=== PATIENT | female | born 1950 | race American Indian/Alaskan Native ===

== ENCOUNTER 2016-04-28 14:10 | Inpatient (IN) | payer MEDICARE ==
[2016-04-28] MEDS ORDERED: CLEOCIN 600 MG/50 mL 600 MG/50 ML BAG IV ONE (16:28)
[2016-04-28] MEDS ORDERED: VANCOMYCIN VIAL IV ONE (16:28)
[2016-04-28] MEDS ORDERED: SUBLIMAZE IV ONE (16:28)
--- NOTE | 2016-04-28 16:31 | Emergency Department Report ---
ED Lower Extremity HPI - General Chief Complaint: Fall Stated Complaint: FALL/LEG PAIN Time Seen by Provider: 04/28/16 16:06 Source: patient, EMS (ems notes not available at time of chart dictation), RN notes reviewed, old records reviewed Mode of arrival: Stretcher Limitations: Physical Limitation - History of Present Illness Initial Comments: This is a 65-year-old female. She is previously unknown to me. Her primary care doctor is Dr. france Past medical history includes severe arthritis, left hip revision, gastric bypass, liposuction of both sides, lymphedema, occasional superinfected cellulitis. The patient has been unable to walk since last February. She reports chronic arthritis in her bilateral hips. The patient reports that she stood up a few days ago, felt her legs give way, and then slid down. She did not hit her head. She did not hit her neck. While in the ER, she was found to have left lower extremity redness and erythema. It was also noted to be weeping. Patient has been seen in the past by vascular surgery for left lower extremity cellulitis. It was recommended and January 2015 that the patient follow-up in the vascular surgery office for "possible venous reflux disease and referral to manual lymphatic drainage clinic." Patient has not followed up for these. Patient reports that she has essentially been wheelchair bound since February 2015. MD Complaint: other (left lower extremity redness, swelling) -: unknown Type of Injury: unknown Place: home Severity: moderate Improves With: nothing, rest Worsens With: movement, palpation Associated Symptoms: swelling, unable to bear weight - Related Data Home Medications Medication Instructions Recorded Confirmed Last Taken Baclofen 10 mg PO BID 01/21/15 01/21/15 Unknown Esomeprazole Magnesium [NexIUM] 40 mg PO DAILY 01/21/15 01/21/15 Unknown HYDROcodone/ACETAMINOPHEN 1 tab PO Q4HR PRN 01/21/15 01/21/15 Unknown [HYDROcodone-Acetaminophn 10-325] Iron 18 mg PO QDAY 01/21/15 01/21/15 Unknown Magnesium 250 mg PO DAILY 01/21/15 01/21/15 Unknown Sennosides/Docusate Sodium 1 each PO DAILY 01/21/15 01/21/15 Unknown [Kati-Colace Tablet] Zolpidem [Ambien] 10 mg PO QHS 01/21/15 01/21/15 Unknown Previous Rx's Medication Instructions Recorded Last Taken Type Cephalexin [Keflex] 500 mg PO Q8HR #30 cap 01/28/15 Unknown Rx HYDROcodone/APAP 10-325 [Ken[place] 1 each PO Q4H PRN #120 tablet 01/28/15 Unknown Rx 10-325 mg TAB] Zolpidem [Ambien] 10 mg PO QHS PRN #30 tablet 01/28/15 Unknown Rx Allergies Allergy/AdvReac Type Severity Reaction Status Date / Time peanut Allergy Severe BREATHING Verified 04/28/16 16:42 STOPS,ITCHING,SWELLING ampicillin Allergy Mild Rash Verified 04/28/16 16:42 Penicillins Allergy Unknown Verified 04/28/16 15:52 ED Review of Systems ROS: Stated complaint: FALL/LEG PAIN Other details as noted in HPI Constitutional: malaise. denies: fever Eyes: denies: vision change ENT: denies: epistaxis Respiratory: denies: cough Cardiovascular: denies: chest pain Gastrointestinal: denies: abdominal pain Genitourinary: denies: urgency, dysuria Musculoskeletal: joint swelling, arthralgia, myalgia Skin: as per HPI, lesions Neurological: denies: headache ED Past Medical Hx - Past Medical History Hx Hypertension: Yes Additional medical history: Lower extremity edema - Surgical History Hx Cholecystectomy: Yes Additional Surgical History: LEFT HIP REVISION. Gastric bypass. Lipase section to both thighs in the remote past. - Social History Smoking Status: Former Smoker Substance Use Type: None - Medications Home Medications: Home Medications Medication Instructions Recorded Confirmed Last Taken Type Baclofen 10 mg PO BID 01/21/15 01/21/15 Unknown History Esomeprazole Magnesium [NexIUM] 40 mg PO DAILY 01/21/15 01/21/15 Unknown History HYDROcodone/ACETAMINOPHEN 1 tab PO Q4HR PRN 01/21/15 01/21/15 Unknown History [HYDROcodone-Acetaminophn 10-325] Iron 18 mg PO QDAY 01/21/15 01/21/15 Unknown History Magnesium 250 mg PO DAILY 01/21/15 01/21/15 Unknown History Sennosides/Docusate Sodium 1 each PO DAILY 01/21/15 01/21/15 Unknown History [Kati-Colace Tablet] Zolpidem [Ambien] 10 mg PO QHS 01/21/15 01/21/15 Unknown History Cephalexin [Keflex] 500 mg PO Q8HR #30 cap 01/28/15 Unknown Rx HYDROcodone/APAP 10-325 [[place] 1 each PO Q4H PRN #120 tablet 01/28/15 Unknown Rx 10-325 mg TAB] Zolpidem [Ambien] 10 mg PO QHS PRN #30 tablet 01/28/15 Unknown Rx ED Physical Exam - General Limitations: Physical Limitation General appearance: alert, in no apparent distress - Head Head exam: Present: atraumatic, normocephalic - Eye Eye exam: Present: normal appearance, EOMI. Absent: nystagmus - ENT ENT exam: Present: normal exam, normal orophraynx, mucous membranes moist, normal external ear exam - Neck Neck exam: Present: normal inspection, full ROM. Absent: tenderness, meningismus - Respiratory Respiratory exam: Present: normal lung sounds bilaterally. Absent: respiratory distress, wheezes, rales, rhonchi, stridor, decreased breath sounds - Cardiovascular Cardiovascular Exam: Present: regular rate, normal rhythm, normal heart sounds. Absent: bradycardia, tachycardia, irregular rhythm, systolic murmur, diastolic murmur, rubs, gallop - GI/Abdominal GI/Abdominal exam: Present: soft, normal bowel sounds. Absent: distended, tenderness, guarding, rebound, rigid, pulsatile mass - Extremities Exam Extremities exam: Present: tenderness, pedal edema, joint swelling, calf tenderness, other (there is bilateral lower extremity swelling, the left lower extremity has erythema and is quite tender. The compartments are soft. 2+ pulses noted in 4 extremities. Chronic lymphedema is noted) - Back Exam Back exam: Present: normal inspection, full ROM. Absent: tenderness, CVA tenderness (R), CVA tenderness (L), muscle spasm, paraspinal tenderness, vertebral tenderness - Neurological Exam Neurological exam: Present: alert, oriented X3, other (Extraocular movements intact. Tongue midline. No facial droop. Facial sensation intact to light touch in the V1, V2, V3 distribution bilaterally. 5 and 5 strength in 4 extremities.. Sensation is intact to light touch in 4 extremities.). Absent: motor sensory deficit - Psychiatric Psychiatric exam: Present: normal affect, normal mood - Skin Skin exam: Present: warm, dry, erythema ED Course Vital Signs 04/28/16 04/28/16 04/28/16 15:48 17:27 19:06 Temperature 97.8 F Pulse Rate 76 94 H Respiratory 20 18 16 Rate Blood Pressure 109/63 Blood Pressure 115/74 [Left] O2 Sat by Pulse 100 99 99 Oximetry 04/28/16 19:15 Temperature 97.9 F Pulse Rate 95 H Respiratory 16 Rate Blood Pressure Blood Pressure 111/64 [Left] O2 Sat by Pulse 100 Oximetry - Reevaluation(s) Reevaluation #1: 04/28/16 18:42 Differential diagnosis: Cellulitis, chronic lymphedema, chronic inability to walk Assessment and plan: 65-year-old female with poor mobility, left lower extremity redness, pain and swelling, bedside DVT study negative, most likely consistent with cellulitis. Patient is not compliant with outpatient recommended therapies. Given poor mobility, known history of lymphedema, she is very unlikely to do well with oral antibiotics. She will be admitted for IV antibiotics. Case is discussed with her private physician, Dr. France , who accepts the patient to her service. The DVT study is essentially negative, a left femur x-ray demonstrates a chronic proximal femur callus, left femoral vick, severe DJD of left femoral neck. As per patient, this has essentially been chronic. I will defer to her primary care doctor/Hospital physician to contact orthopedics if he feels like it is appropriate. Given that this has been present for over a year, I did not feel like it is an emergent condition at this time. ED Lower Extremity MDM - Lab Data Result diagrams: 04/28/16 17:37 04/28/16 17:37 Vital Signs 04/28/16 04/28/16 15:48 17:27 Temperature 97.8 F Pulse Rate 76 Respiratory 20 18 Rate Blood Pressure 109/63 O2 Sat by Pulse 100 99 Oximetry Labs 04/28/16 04/28/16 04/28/16 17:37 17:37 17:37 WBC 6.0 RBC 3.13 L Hgb 9.8 L Hct 29.8 L MCV 95 MCH 31 MCHC 33 RDW 14.9 Plt Count 108 L Sodium 137 Potassium 4.9 Chloride 104.4 Carbon Dioxide 18 L Anion Gap 20 BUN 23 H Creatinine 1.1 Estimated GFR > 60 BUN/Creatinine Ratio 20.90 Glucose 100 Lactic Acid 1.6 Calcium 8.2 L Total Creatine Kinase 55 - Radiology Data Radiology results: report reviewed, image reviewed interpreted by me: There is swelling noted in the soft tissues. Left femur x-ray demonstrates a chronically healing left proximal femur fracture, there is also a complete fracture/separation of the right femoral neck from the femoral head. DJD is noted. Soft tissue swelling is noted. There is no distal fracture mid tibia/ fibula. [facility] [address] [facility]# [id number] 04/28/16 17:24 - Radiology Dept. Note by REMINGTON FARRELL [facility] Num: [id number] : 1950 Patient Age: 65 VASCULAR LAB.PRELIMINARY REPORT.LLE VENOUS DUPLEX DONE BEDSIDE.TECHNICALLY LIMITED DUE TO HABITUS/SEVERE LLE EDEMA.NO EVIDENCE OF DVT/SVT IN VESSELS VISUALIZED. Initialized on 04/28/16 17:24 - END OF NOTE Critical care attestation.: If time is entered above; I have spent that time in minutes in the direct care of this critically ill patient, excluding procedure time. ED Disposition Clinical Impression: Lymphedema of both lower extremities, Morbid obesity, Cellulitis, Debility Disposition: OP ADMITTED IP TO THIS HOSP Is pt being admited?: Yes Does the pt Need Aspirin: No Condition: Good
[2016-04-28] MEDS ORDERED: VANCOMYCIN PHARMACY TO DOSE IV SCH (17:00)
[2016-04-28] MEDS ORDERED: VANCOMYCIN VIAL 2,000 MG in NACL 0.9% 500 ML 500 ML IV ONE (18:00)
[2016-04-28 18:07] LABS: Hematocrit 29.8 % (30.3-42.9); Hemoglobin 9.8 gm/dl (10.1-14.3); Mean Corpuscular HGB Conc 33 % (30-34); Mean Corpuscular Hemoglobin 31 pg (28-32); Mean Corpuscular Volume 95 fl (79-97); Platelet Count 108 K/mm3 (140-440); Red Blood Count 3.13 M/mm3 (3.65-5.03); Red Cell Distribution Width 14.9 % (13.2-15.2)
[2016-04-28 18:14] LABS: Anion Gap 20 mmol/L; Blood Urea Nitrogen 23 mg/dL (7-17); Calcium 8.2 mg/dL (8.4-10.2); Carbon Dioxide 18 mmol/L (22-30); Chloride 104.4 mmol/L (98-107); Creatine Kinase 55 units/L (30-135); Glucose 100 mg/dL (65-100); Potassium 4.9 mmol/L (3.6-5.0); Sodium 137 mmol/L (137-145)
[2016-04-28] MEDS ORDERED: TORADOL IV ONE (18:45)
--- NOTE | 2016-04-28 18:51 | Admit Criteria Form ---
Admission Criteria Documentation: CELLULITIS Clinical Indications for Admission to Inpatient Care (Place 'X' for any and all applicable criteria): Admission is indicated for ANY ONE of the following(1)(2)(3)(4)(5): [ ]I. Limb-threatening infection [ ]II. High-risk comorbid condition as indicated by ANY ONE of the following: [ ]a) Uncontrolled diabetes (eg, HbA1c greater than 10% (0.1)) [ ]b) Cirrhosis [ ]c) Neutropenia [ ]d) Asplenia [ ]e) Immunosuppression [ ]f) Symptomatic heart failure [ ]III. Failure of outpatient therapy as indicated by ALL of the following: [ ]a) Progression or no improvement after adequate trial (minimum of 48 hours, with longer period for stable lower extremity infection) [ ]b) Adequate antibiotic regimen as indicated by use of ANY ONE of the following: [ ]i) First-generation cephalosporin (e.g., cephalexin) [ ]ii) Antistaphylococcal penicillin (e.g., dicloxacillin) [ ]iii) Penicillin-allergic patient regimen (clindamycin, extended-spectrum fluoroquinolone, or doxycycline) [ ]iv) Resistant organism (eg, methicillin-resistant Staphylococcus aureus) regimen (6) [ ]c) Outpatient intravenous therapy regimen is not appropriate due to ANY ONE of the following. (7)(8)(9)(10): [ ]i) It was tried and was not successful (eg, progression of infection). [ ]ii) It is not available or cannot be arranged in a clinically appropriate time frame (e.g., the next day). [ ]iii) Clinical presentation (eg, acuity of infection, rapidity of progression, confirmed or suspected bacteremia) is judged to require ALL of the following: [ ]1) Immediate initiation of intravenous therapy ( eg, cannot wait for next day) [ ]2) Intensity of patient monitoring and observation (eg, vital sign measurement, checks for infection progression) that cannot be provided at other than inpatient level of care [ ]IV. Mental status changes [ ]V. Bacteremia [ ]. Hemodynamic instability [ ]VII. Suspected necrotizing soft tissue infection (e.g., gas in tissue)(11)( 12) [ ]VIII. Orbital infection (13)(14) [ ]IX. Associated surgical procedure (e.g., abscess drainage, debridement) not amenable to outpatient, emergency department, or observation care [ ]X. Cutaneous gangrene [ ]XI. High fever (temperature greater than 39.5 degrees C (103.1 degrees F) (oral)) not responsive to outpatient, emergency department, or observation care therapy [X ]XIII. Inpatient admission required rather than observation care (Also use Cellulitis: Observation Care as appropriate) because of ANY ONE of the following : [ ]a) Periorbital or perineal infection that is severe or worsening [ ]b) Severe pain requiring acute inpatient management [ ]c) IV fluid to replace significant ongoing (e.g., for over 24 hours) losses (greater than 3L/m2 per day) [ ]d) Compartment syndrome monitoring (17) [ ]e) Strict or protective (eg, laminar flow) isolation [ ]f) Urgent debridement or skin grafting [ ]g) Bone or joint debridement [ ]h) Immediate inpatient surgery [ X]i) Other condition, treatment or monitoring requiring inpatient admission Extended stay beyond goal length of stay may be needed for (1)(18): [ ]a) Necrotizing soft tissue infection or fasciitis [ ]b) Gram-negative infection [ ]c) Methicillin-resistant Staphylococcal aureus (MRSA) infection [ ]d) Peripheral venous insufficiency with cellulitis [ ]e) Extensive edema [ ]f) Sepsis or continued Hemodynamic instability [ ]g) Continued high fever or mental status change [ ]h) Bacteremia [ ]i) Active serious comorbid conditions ( eg, heart failure, renal insufficiency) The original [facility] content created by [employer] has been revised. The portions of the content which have been revised are identified through the use of italic text or in bold, and [email or web address] has neither reviewed nor approved the modified material. All other unmodified content is copyright [facility] Please see references footnoted in the original [facility] [employer] edition 2016 Admission Criteria Met: Yes
[2016-04-28] MEDS ORDERED: ZOFRAN IV PRN (21:20)
[2016-04-28] MEDS ORDERED: MILK OF MAGNESIA PO PRN (21:20)
[2016-04-28] MEDS ORDERED: TYLENOL PO PRN (21:20)
[2016-04-28] MEDS ORDERED: DULCOLAX PR PRN (21:20)
--- NOTE | 2016-04-28 21:36 | History and Physical Report ---
History of Present Illness Date of examination: 04/28/16 Date of admission: 04/28/16 18:44 Chief complaint: Chief complaint: Left lower extremities redness and swelling for 1 month. + History of present illness: History of present illness: 65-year-old -[place] female well known to me from my office comes in for swelling of both the legs. Patient has chronic lymphedema. Patient was asked to follow up with vascular surgery a few months ago and did not follow up for last 1 year. Now comes in for redness of the left lower extremity of one month duration increase more so recently in the last 1 week and painful. Patient also has redness in the right lower extremity is smaller extent but on the left side left lower extremity there is swelling and redness is extensive from mid calf to ankle. No fever no chills. Patient is morbidly obese and has a history of hypertension and chronic bilateral lymphedema both lower extremities. Pain is about 7 on scale of 1-10. Past History Past Medical History: hypertension, other (lymphedema chronic pain) Past Surgical History: Other (left hip revision gastric bypass liposuction to both thighs in the remote past.) Medications and Allergies Allergies Allergy/AdvReac Type Severity Reaction Status Date / Time peanut Allergy Severe BREATHING Verified 04/28/16 16:42 STOPS,ITCHING,SWELLING ampicillin Allergy Mild Rash Verified 04/28/16 16:42 Penicillins Allergy Unknown Verified 04/28/16 15:52 Home Medications Medication Instructions Recorded Confirmed Last Taken Type Baclofen 10 mg PO BID 01/21/15 01/21/15 Unknown History Esomeprazole Magnesium [NexIUM] 40 mg PO DAILY 01/21/15 01/21/15 Unknown History HYDROcodone/ACETAMINOPHEN 1 tab PO Q4HR PRN 01/21/15 01/21/15 Unknown History [HYDROcodone-Acetaminophn 10-325] Iron 18 mg PO QDAY 01/21/15 01/21/15 Unknown History Magnesium 250 mg PO DAILY 01/21/15 01/21/15 Unknown History Sennosides/Docusate Sodium 1 each PO DAILY 01/21/15 01/21/15 Unknown History [Kati-Colace Tablet] Zolpidem [Ambien] 10 mg PO QHS 01/21/15 01/21/15 Unknown History Cephalexin [Keflex] 500 mg PO Q8HR #30 cap 01/28/15 Unknown Rx HYDROcodone/APAP 10-325 [[place] 1 each PO Q4H PRN #120 tablet 01/28/15 Unknown Rx 10-325 mg TAB] Zolpidem [Ambien] 10 mg PO QHS PRN #30 tablet 01/28/15 Unknown Rx Active Meds: Active Medications Acetaminophen (Tylenol) 650 mg PO Q4H PRN PRN Reason: Pain MILD(1-3)/Fever >100.5/BERGMAN Bisacodyl (Dulcolax) 10 mg MA QDAY PRN PRN Reason: Constipation unrelieved by MOM Enoxaparin Sodium (Lovenox) 40 mg SUB-Q QDAY@2200 ENZO Famotidine (Pepcid) 20 mg PO BID ENZO Furosemide (Lasix) 40 mg IV QDAY ENZO Hydromorphone HCl (Dilaudid) 1 mg IV Q3H PRN PRN Reason: Pain , Severe (7-10) Vancomycin HCl 2,000 mg/ (Sodium Chloride) 500 mls @ 250 mls/hr IV Q24H ENZO Clindamycin HCl (Cleocin 900 Mg/50 Ml) 900 mg in 50 mls @ 100 mls/hr IV Q8HR ENZO PRN Reason: Protocol Magnesium Hydroxide (Milk Of Magnesia) 30 ml PO Q4H PRN PRN Reason: Constipation Ondansetron HCl (Zofran) 4 mg IV Q3H PRN PRN Reason: N/V unrelieved by Reglan Oxycodone/Acetaminophen (Percocet 5/325) 1 tab PO Q6H PRN PRN Reason: Pain, Moderate (4-6) Potassium Chloride (K-Dur) 20 meq PO QDAY [facility] Vancomycin HCl (Vancomycin Pharmacy To Dose) 1 each IV PKCONSULT ENZO PRN Reason: Protocol Review of Systems Constitutional: no weight loss, no weight gain Ears, nose, mouth and throat: no nasal congestion, no nasal discharge, no sinus pressure, no sinus pain, no sore throat Cardiovascular: dyspnea on exertion, no chest pain, no orthopnea, no lightheadedness Respiratory: dyspnea on exertion, no cough with sputum, no shortness of breath, no congestion, no wheezing Gastrointestinal: no nausea, no vomiting, no diarrhea, no constipation Genitourinary Female: no urinary frequency, no urgency, no stress incontinence Musculoskeletal: no neck stiffness, no neck pain Integumentary: rash, redness, color changes Neurological: no seizures, no syncope Psychiatric: no anxiety, no depression Endocrine: no cold intolerance, no heat intolerance, no polyphagia, no polydipsia, no polyuria Hematologic/Lymphatic: no easy bruising, no easy bleeding Allergic/Immunologic: no urticaria, no allergic rhinitis, no wheezing Exam - Physical Exam Narrative exam: Earlier elderly female lying in bed comfortably obese - Constitutional Vitals: Temp Pulse Resp BP Pulse Ox 97.9 F 95 H 16 111/64 100 04/28/16 19:15 04/28/16 19:15 04/28/16 19:15 04/28/16 19:15 04/28/16 19:15 General appearance: Present: no acute distress, well-nourished - EENT Eyes: Present: PERRL ENT: hearing intact, clear oral mucosa - Neck Neck: Present: supple, normal ROM - Respiratory Respiratory effort: normal Respiratory: bilateral: CTA - Cardiovascular Heart Sounds: Present: S1 & S2. Absent: rub, click - Extremities Extremities: pulses symmetrical, No edema, abnormal (left lower extremity red and swollen from mid calf to ankle the whole circumference of the leg. Also right leg slightly red over 3-4 cm across the front of the leg. because of the thickness of the irritation dorsum of the foot) Peripheral Pulses: within normal limits - Abdominal General gastrointestinal: Present: soft, non-tender, non-distended, normal bowel sounds Female genitourinary: Present: normal - Integumentary Integumentary: Present: warm, dry, erythema, rash - Musculoskeletal Musculoskeletal: gait normal, strength equal bilaterally - Psychiatric Psychiatric: appropriate mood/affect, intact judgment & insight - Neurologic Neurologic: CNII-XII intact, moves all extremities - Allied Health Allied health notes reviewed: nursing Results - Labs CBC & Chem 7: 04/28/16 17:37 04/28/16 17:37 Labs: Laboratory Last Values WBC 6.0 K/mm3 (4.5-11.0) 04/28/16 17:37 RBC 3.13 M/mm3 (3.65-5.03) L 04/28/16 17:37 Hgb 9.8 gm/dl (10.1-14.3) L 04/28/16 17:37 Hct 29.8 % (30.3-42.9) L 04/28/16 17:37 MCV 95 fl (79-97) 04/28/16 17:37 MCH 31 pg (28-32) 04/28/16 17:37 MCHC 33 % (30-34) 04/28/16 17:37 RDW 14.9 % (13.2-15.2) 04/28/16 17:37 Plt Count 108 K/mm3 (140-440) L 04/28/16 17:37 Sodium 137 mmol/L (137-145) 04/28/16 17:37 Potassium 4.9 mmol/L (3.6-5.0) 04/28/16 17:37 Chloride 104.4 mmol/L (98-107) 04/28/16 17:37 Carbon Dioxide 18 mmol/L (22-30) L 04/28/16 17:37 Anion Gap 20 mmol/L 04/28/16 17:37 BUN 23 mg/dL (7-17) H 04/28/16 17:37 Creatinine 1.1 mg/dL (0.7-1.2) 04/28/16 17:37 Estimated GFR > 60 ml/min 04/28/16 17:37 BUN/Creatinine Ratio 20.90 % 04/28/16 17:37 Glucose 100 mg/dL (65-100) 04/28/16 17:37 Lactic Acid 1.6 mmol/L (0.7-2.0) 04/28/16 17:37 Calcium 8.2 mg/dL (8.4-10.2) L 04/28/16 17:37 Total Creatine Kinase 55 units/L (30-135) 04/28/16 17:37 - Imaging and Cardiology Venous US: report reviewed (venous duplex Negative on Both Lower Extremities) Assessment and Plan Advance Directives: Yes VTE prophylaxis?: Chemical Plan of care discussed with patient/family: Yes - Patient Problems (1) Cellulitis Current Visit: Yes Status: Acute Qualifiers: Site of cellulitis: extremity Site of cellulitis of extremity: S Site of cellulitis of trunk: S Laterality: left Plan to address problem: Patient started on clindamycin and IV vancomycin will also get vascular surgery consult (2) Lymphedema of both lower extremities Current Visit: Yes Status: Chronic Plan to address problem: Lymphedema chronic. We will get vascular surgery consult most of the time it is futile (3) Morbid obesity Current Visit: Yes Status: Chronic Qualifiers: Obesity type: due to excess calories Qualified Code(s): E66.01 - Morbid ( severe) obesity due to excess calories Plan to address problem: Patient to follow-up with bariatric surgery as outpatient for long-term resolution of the recurring cellulitis of the lower extremity (4) Hypertension Current Visit: Yes Status: Chronic Qualifiers: Hypertension type: essential hypertension Qualified Code(s): I10 - Essential (primary) hypertension Plan to address problem: Continue antihypertensives (5) DVT prophylaxis Current Visit: Yes Status: Acute Plan to address problem: Patient started on Lovenox 40 mg subcutaneous daily
[2016-04-28] MEDS: CLEOCIN 900 MG/50 mL 900 MG/50 ML BAG IV SCH (22:03)
[2016-04-28] MEDS: LOVENOX SUB-Q SCH (22:03)
[2016-04-28] MEDS: K-DUR PO SCH (22:04)
[2016-04-28] MEDS: PEPCID PO SCH (22:04)
[2016-04-28] MEDS: LASIX IV SCH (22:08)
[2016-04-29] MEDS ORDERED: AMBIEN PO ONE (01:30)
[2016-04-29] MEDS: CLEOCIN 900 MG/50 mL 900 MG/50 ML BAG IV SCH ×3 (05:51→21:45)
[2016-04-29] MEDS ORDERED: VANCOMYCIN VIAL 2,000 MG in NACL 0.9% 500 ML 500 ML IV SCH (06:00)
[2016-04-29] MEDS: PERCOCET 5/325 PO PRN (08:15)
[2016-04-29 08:30] LABS: Hemoglobin 9.1 gm/dl (10.1-14.3); Mean Corpuscular HGB Conc 33 % (30-34); Mean Corpuscular Hemoglobin 31 pg (28-32); Mean Corpuscular Volume 94 fl (79-97); Red Blood Count 2.97 M/mm3 (3.65-5.03); Red Cell Distribution Width 14.4 % (13.2-15.2); White Blood Count 4.8 K/mm3 (4.5-11.0)
[2016-04-29 08:45] LABS: Alanine Aminotransferase 37 units/L (7-56); Albumin/Globulin Ratio 0.6 %; Alkaline Phosphatase 122 units/L (35-129); Anion Gap 17 mmol/L; BUN/Creatinine Ratio 22.22; Bilirubin,Total 1.2 mg/dL (0.1-1.2); Blood Urea Nitrogen 20 mg/dL (7-17); Calcium 7.7 mg/dL (8.4-10.2); Carbon Dioxide 18 mmol/L (22-30); Chloride 108.3 mmol/L (98-107); Glucose 71 mg/dL (65-100); Potassium 4.8 mmol/L (3.6-5.0); Sodium 138 mmol/L (137-145); Total Protein 5.6 g/dL (6.3-8.2)
[2016-04-29 09:06] LABS: Platelet Count 83 K/mm3 (140-440)
[2016-04-29] MEDS: PEPCID PO SCH ×2 (09:34→21:45)
[2016-04-29] MEDS: K-DUR PO SCH (09:34)
[2016-04-29] MEDS: LASIX IV SCH (09:36)
[2016-04-29 09:49] LABS: Basophils % (Manual) 0 % (0.0-1.8); Blastocytes % (Manual) 0 %; Eosinophils % (Manual) 0 % (0.0-4.3)
[2016-04-29 09:52] LABS: Anisocytosis 2+
[2016-04-29 09:53] LABS: Microcytosis 1+
[2016-04-29 09:54] LABS: Diff Status Complete; Platelet Estimate Consistent w Auto
--- NOTE | 2016-04-29 13:57 | XRay Report ---
Left tibia fibula 2 views: History: Left leg pain. Findings: Multiple phleboliths are noted in the soft tissue. Generalized osteopenia. No periosteal reaction or lytic lesion. Impression: Diffuse phlebolith calcifications. Generalized osteopenia.
--- NOTE | 2016-04-29 14:05 | Progress Note ---
Assessment and Plan Assessment and plan: Cellulitis of bilateral lower extremity - Patient is on IV antibiotics - Pain control Bilateral lymph edema - Vascular surgery consult was placed Left hip pain - Patient had surgery last October Obesity - Patient is constituted about weight loss Patient is not ambulatory - She is wheelchair Prophylaxis - Lovenox Disposition - Continue inpatient care History Interval history: Patient was seen and evaluated this morning, patient complains right hip pain, which is chronic. Hospitalist Physical - Physical exam Narrative exam: Not in cardiopulmonary distress. Vital signs as documented. Head exam is unremarkable. No scleral icterus . Neck is without jugular venous distension, thyromegaly, or carotid bruits. Lungs are clear to auscultation. Cardiac exam reveals regular rate and Rhythm. First and second heart sounds normal. No murmurs, rubs or gallops. Abdominal exam reveals normal bowel sounds, no masses, no organomegaly and no aortic enlargement. Extremities are significant for bilateral leg edema with some blisters on the feet. WAXER FLOOR: Alert and oriented 3. 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 - Constitutional Vitals: Temp Pulse Resp BP Pulse Ox 98.3 F 95 H 18 125/63 100 04/29/16 00:05 04/29/16 00:05 04/29/16 03:10 04/29/16 00:05 04/29/16 00:05 General appearance: Present: no acute distress, well-nourished Results - Labs CBC & Chem 7: 04/29/16 07:23 04/29/16 07:23 Labs: Laboratory Last Values WBC 4.8 K/mm3 (4.5-11.0) 04/29/16 07:23 RBC 2.97 M/mm3 (3.65-5.03) L 04/29/16 07:23 Hgb 9.1 gm/dl (10.1-14.3) L 04/29/16 07:23 Hct 28.0 % (30.3-42.9) L 04/29/16 07:23 MCV 94 fl (79-97) 04/29/16 07:23 MCH 31 pg (28-32) 04/29/16 07:23 MCHC 33 % (30-34) 04/29/16 07:23 RDW 14.4 % (13.2-15.2) 04/29/16 07:23 Plt Count 83 K/mm3 (140-440) L 04/29/16 07:23 Add Manual Diff Complete 04/29/16 07:23 Total Counted 100 04/29/16 07:23 Seg Neuts % (Manual) 79.0 % (40.0-70.0) H 04/29/16 07:23 Band Neutrophils % 0 % 04/29/16 07:23 Lymphocytes % (Manual) 13.0 % (13.4-35.0) L 04/29/16 07:23 Reactive Lymphs % (Man) 0 % 04/29/16 07:23 Monocytes % (Manual) 8.0 % (0.0-7.3) H 04/29/16 07:23 Eosinophils % (Manual) 0 % (0.0-4.3) 04/29/16 07:23 Basophils % (Manual) 0 % (0.0-1.8) 04/29/16 07:23 Metamyelocytes % 0 % 04/29/16 07:23 Myelocytes % 0 % 04/29/16 07:23 Promyelocytes % 0 % 04/29/16 07:23 Blast Cells % 0 % 04/29/16 07:23 Nucleated RBC % Not Reportable 04/29/16 07:23 Seg Neutrophils # Man 3.8 K/mm3 (1.8-7.7) 04/29/16 07:23 Band Neutrophils # 0.0 K/mm3 04/29/16 07:23 Lymphocytes # (Manual) 0.6 K/mm3 (1.2-5.4) L 04/29/16 07:23 Abs React Lymphs (Man) 0.0 K/mm3 04/29/16 07:23 Monocytes # (Manual) 0.4 K/mm3 (0.0-0.8) 04/29/16 07:23 Eosinophils # (Manual) 0.0 K/mm3 (0.0-0.4) 04/29/16 07:23 Basophils # (Manual) 0.0 K/mm3 (0.0-0.1) 04/29/16 07:23 Metamyelocytes # 0.0 K/mm3 04/29/16 07:23 Myelocytes # 0.0 K/mm3 04/29/16 07:23 Promyelocytes # 0.0 K/mm3 04/29/16 07:23 Blast Cells # 0.0 K/mm3 04/29/16 07:23 WBC Morphology Not Reportable 04/29/16 07:23 Hypersegmented Neuts Not Reportable 04/29/16 07:23 Hyposegmented Neuts Not Reportable 04/29/16 07:23 Hypogranular Neuts Not Reportable 04/29/16 07:23 Smudge Cells Not Reportable 04/29/16 07:23 Toxic Granulation Not Reportable 04/29/16 07:23 Toxic Vacuolation Not Reportable 04/29/16 07:23 Dohle Bodies Not Reportable 04/29/16 07:23 Pelger-Huet Anomaly Not Reportable 04/29/16 07:23 Juanjo Rods Not Reportable 04/29/16 07:23 Platelet Estimate Consistent w auto 04/29/16 07:23 Clumped Platelets Not Reportable 04/29/16 07:23 Plt Clumps, EDTA Not Reportable 04/29/16 07:23 Large Platelets Not Reportable 04/29/16 07:23 Giant Platelets Not Reportable 04/29/16 07:23 Platelet Satelliting Not Reportable 04/29/16 07:23 Plt Morphology Comment Not Reportable 04/29/16 07:23 RBC Morphology Not Reportable 04/29/16 07:23 Dimorphic RBCs Not Reportable 04/29/16 07:23 Polychromasia Not Reportable 04/29/16 07:23 Hypochromasia Not Reportable 04/29/16 07:23 Poikilocytosis Not Reportable 04/29/16 07:23 Anisocytosis 2+ 04/29/16 07:23 Microcytosis 1+ 04/29/16 07:23 Macrocytosis Not Reportable 04/29/16 07:23 Spherocytes Not Reportable 04/29/16 07:23 Pappenheimer Bodies Not Reportable 04/29/16 07:23 Sickle Cells Not Reportable 04/29/16 07:23 Target Cells Not Reportable 04/29/16 07:23 Tear Drop Cells Not Reportable 04/29/16 07:23 Ovalocytes Not Reportable 04/29/16 07:23 Helmet Cells Not Reportable 04/29/16 07:23 [place] Bodies Not Reportable 04/29/16 07:23 [place] Rings Not Reportable 04/29/16 07:23 [place] Cells Not Reportable 04/29/16 07:23 Bite Cells Not Reportable 04/29/16 07:23 Crenated Cell Not Reportable 04/29/16 07:23 Elliptocytes Not Reportable 04/29/16 07:23 Acanthocytes (Spur) Not Reportable 04/29/16 07:23 Rouleaux Not Reportable 04/29/16 07:23 Hemoglobin C Crystals Not Reportable 04/29/16 07:23 Schistocytes Not Reportable 04/29/16 07:23 Malaria parasites Not Reportable 04/29/16 07:23 Rosalio Bodies Not Reportable 04/29/16 07:23 Hem Pathologist Commnt No 04/29/16 07:23 Sodium 138 mmol/L (137-145) 04/29/16 07:23 Potassium 4.8 mmol/L (3.6-5.0) 04/29/16 07:23 Chloride 108.3 mmol/L (98-107) H 04/29/16 07:23 Carbon Dioxide 18 mmol/L (22-30) L 04/29/16 07:23 Anion Gap 17 mmol/L 04/29/16 07:23 BUN 20 mg/dL (7-17) H 04/29/16 07:23 Creatinine 0.9 mg/dL (0.7-1.2) 04/29/16 07:23 Estimated GFR > 60 ml/min 04/29/16 07:23 BUN/Creatinine Ratio 22.22 % 04/29/16 07:23 Glucose 71 mg/dL (65-100) 04/29/16 07:23 Lactic Acid 1.6 mmol/L (0.7-2.0) 04/28/16 17:37 Calcium 7.7 mg/dL (8.4-10.2) L 04/29/16 07:23 Total Bilirubin 1.2 mg/dL (0.1-1.2) 04/29/16 07:23 AST 63 units/L (5-40) H 04/29/16 07:23 ALT 37 units/L (7-56) 04/29/16 07:23 Alkaline Phosphatase 122 units/L (35-129) 04/29/16 07:23 Total Creatine Kinase 55 units/L (30-135) 04/28/16 17:37 Total Protein 5.6 g/dL (6.3-8.2) L 04/29/16 07:23 Albumin 2.0 g/dL (3.9-5) L 04/29/16 07:23 Albumin/Globulin Ratio 0.6 % 04/29/16 07:23
[2016-04-29] MEDS: DILAUDID IV PRN ×2 (14:38→21:46)
--- NOTE | 2016-04-29 20:43 | Consultation ---
History of Present Illness - Reason for Consult Consult date: 04/29/16 Lymphedema Requesting physician: MARKO WOODS - History of Present Illness This patient is a 65-year-old -[place] female that was admitted via the emergency room on 04/28/2016 due to left lower extremity cellulitis with bilateral lower extremity lymphedema. She has a long history of lower extremity lymphedema. She was being cared for at home by home health nurse. She developed blisters to her left lower extremity. These begin to drain and the home health nurse recommended she go to the emergency room, where she has since been admitted. A Vascular surgery consult has been requested to further evaluate. The patient is known to our service from a previous consultation in January 2015. At that point she was treated for cellulitis. It was recommended that she follow up in our office to be evaluated for possible venous reflux disease as well as the chronic lower extremity lymphedema. We discussed the hallmarks of treatment including manual lymphatic drainage. Unfortunately, the patient did not follow-up. She states that this was due to difficulty arranging transportation. She reports to have an outpatient visit scheduled for the of this month. Past History Past Medical History: hypertension, other (Bilateral lower extremity lymphedema , obesity, chronic pain syndrome) Past Surgical History: Other (left hip surgery, previous gastric bypass, liposuction of both legs, excision of excessive skin from her legs following gastric bypass) Social history: other (patient does not drive). denies: smoking, alcohol abuse , prescription drug abuse Family history: no significant family history Medications and Allergies Allergies Allergy/AdvReac Type Severity Reaction Status Date / Time peanut Allergy Severe BREATHING Verified 04/28/16 16:42 STOPS,ITCHING,SWELLING ampicillin Allergy Mild Rash Verified 04/28/16 16:42 Penicillins Allergy Unknown Verified 04/28/16 15:52 Home Medications Medication Instructions Recorded Confirmed Last Taken Type Baclofen 10 mg PO BID 01/21/15 01/21/15 Unknown History Esomeprazole Magnesium [NexIUM] 40 mg PO DAILY 01/21/15 01/21/15 Unknown History HYDROcodone/ACETAMINOPHEN 1 tab PO Q4HR PRN 01/21/15 01/21/15 Unknown History [HYDROcodone-Acetaminophn 10-325] Iron 18 mg PO QDAY 01/21/15 01/21/15 Unknown History Magnesium 250 mg PO DAILY 01/21/15 01/21/15 Unknown History Sennosides/Docusate Sodium 1 each PO DAILY 01/21/15 01/21/15 Unknown History [Kati-Colace Tablet] Zolpidem [Ambien] 10 mg PO QHS 01/21/15 01/21/15 Unknown History Cephalexin [Keflex] 500 mg PO Q8HR #30 cap 01/28/15 Unknown Rx HYDROcodone/APAP 10-325 [Dale 1 each PO Q4H PRN #120 tablet 01/28/15 Unknown Rx 10-325 mg TAB] Zolpidem [Ambien] 10 mg PO QHS PRN #30 tablet 01/28/15 Unknown Rx Active Meds: Active Medications Acetaminophen (Tylenol) 650 mg PO Q4H PRN PRN Reason: Pain MILD(1-3)/Fever >100.5/BERGMAN Bisacodyl (Dulcolax) 10 mg CA QDAY PRN PRN Reason: Constipation unrelieved by MOM Enoxaparin Sodium (Lovenox) 40 mg SUB-Q QDAY@2200 [facility] Last Admin: 04/28/16 22:03 Dose: 40 mg Famotidine (Pepcid) 20 mg PO BID [facility] Last Admin: 04/29/16 09:34 Dose: 20 mg Furosemide (Lasix) 40 mg IV QDAY [facility] Last Admin: 04/29/16 09:36 Dose: 40 mg Hydromorphone HCl (Dilaudid) 1 mg IV Q3H PRN PRN Reason: Pain , Severe (7-10) Last Admin: 04/29/16 14:38 Dose: 1 mg Clindamycin HCl (Cleocin 900 Mg/50 Ml) 900 mg in 50 mls @ 100 mls/hr IV Q8HR [facility] PRN Reason: Protocol Last Admin: 04/29/16 14:43 Dose: 100 mls/hr Vancomycin HCl (Vancomycin/Ns 1 Gm/250 Ml) 1 gm in 250 mls @ 166.667 mls/hr IV Q12H [facility] Magnesium Hydroxide (Milk Of Magnesia) 30 ml PO Q4H PRN PRN Reason: Constipation Ondansetron HCl (Zofran) 4 mg IV Q3H PRN PRN Reason: N/V unrelieved by Reglan Oxycodone/Acetaminophen (Percocet 5/325) 1 tab PO Q6H PRN PRN Reason: Pain, Moderate (4-6) Last Admin: 04/29/16 08:15 Dose: 1 tab Potassium Chloride (K-Dur) 20 meq PO QDAY [facility] Last Admin: 04/29/16 09:34 Dose: 20 meq Vancomycin HCl (Vancomycin Pharmacy To Dose) 1 each IV PKCONSULT [facility]ZO PRN Reason: Protocol Review of Systems All systems: negative Exam - Constitutional Vitals: Temp Pulse Resp BP Pulse Ox 98.4 F 102 H 20 120/70 100 04/29/16 14:20 04/29/16 14:20 04/29/16 14:20 04/29/16 14:20 04/29/16 14:20 General appearance: Present: no acute distress, obese - EENT Eyes: Present: EOM intact ENT: hearing intact - Neck Neck: Present: supple - Respiratory Respiratory effort: normal - Extremities Extremities: normal temperature, abnormal (she has bilateral lower extremity swelling consistent with chronic lymphedema/lipodermatosclerosis, she has diffuse bulla to the left lower extremity with erythema. No active drainage appreciated presently) - Psychiatric Psychiatric: appropriate mood/affect, intact judgment & insight, cooperative - Neurologic Neurologic: no focal deficits Results - Labs CBC & Chem 7: 04/29/16 07:23 04/29/16 07:23 Labs: Abnormal lab results 04/29/16 04/29/16 Range/Units 07:23 07:23 RBC 2.97 L (3.65-5.03) M/mm3 Hgb 9.1 L (10.1-14.3) gm/dl Hct 28.0 L (30.3-42.9) % Plt Count 83 L (140-440) K/mm3 Seg Neuts % (Manual) 79.0 H (40.0-70.0) % Lymphocytes % (Manual) 13.0 L (13.4-35.0) % Monocytes % (Manual) 8.0 H (0.0-7.3) % Lymphocytes # (Manual) 0.6 L (1.2-5.4) K/mm3 Chloride 108.3 H (98-107) mmol/L Carbon Dioxide 18 L (22-30) mmol/L BUN 20 H (7-17) mg/dL Calcium 7.7 L (8.4-10.2) mg/dL AST 63 H (5-40) units/L Total Protein 5.6 L (6.3-8.2) g/dL Albumin 2.0 L (3.9-5) g/dL Assessment and Plan This patient was admitted via the emergency room due to bilateral lower extremity edema with left lower extremity cellulitis. Agree with antibiotics for the treatment of cellulitis. Command ET nurse consultation for local wound care while an inpatient. Encourage lower extremity elevation. We once again discussed the hallmarks of treatment with regards to chronic lymphedema. She needs follow-up as an outpatient to rule out venous insufficiency. She would likely benefit from manual lymphatic drainage, and ongoing compressive therapy (lymphedema pumps, support stockings). I reiterated that this is a lifelong treatment process. Without ongoing treatment, she is likely to continue this pattern requiring admission for recurrent cellulitis and lower extremity swelling. She stated understanding and agreed. Recommend that she keep her follow-up visit which was scheduled for next week. - Patient Problems (1) Lymphedema of both lower extremities Current Visit: Yes Status: Chronic (2) Cellulitis Current Visit: Yes Status: Acute Qualifiers: Site of cellulitis: extremity Site of cellulitis of extremity: S Site of cellulitis of trunk: S Laterality: left (3) History of noncompliance with medical treatment Current Visit: Yes Status: Acute (4) History of gastric bypass Current Visit: Yes Status: Acute (5) Morbid obesity Current Visit: Yes Status: Chronic Qualifiers: Obesity type: due to excess calories Qualified Code(s): E66.01 - Morbid ( severe) obesity due to excess calories
[2016-04-29] MEDS: LOVENOX SUB-Q SCH (21:45)
[2016-04-30] MEDS: AMBIEN PO PRN (00:08)
[2016-04-30] MEDS: CLEOCIN 900 MG/50 mL 900 MG/50 ML BAG IV SCH ×3 (06:15→21:34)
[2016-04-30] MEDS: VANCOMYCIN/NS 1 GM/250 ML 1 GM/250 ML BAG IV SCH (09:57)
[2016-04-30] MEDS: K-DUR PO SCH (09:58)
[2016-04-30] MEDS: LASIX IV SCH (09:58)
[2016-04-30] MEDS: PEPCID PO SCH ×2 (09:58→21:36)
[2016-04-30] MEDS: PERCOCET 5/325 PO PRN (09:58)
--- NOTE | 2016-04-30 10:29 | Discharge Summary ---
Providers - Providers Date of Admission: 04/28/16 18:44 Date of discharge: 04/30/16 Attending physician: JIMENA YUAN MD 04/28/16 21:26 Consult to Physician [CONS] Routine Consulting Provider: LU RODRIGUEZ Reason For Exam: Lymphedema Place consult to:: Notified:: DR. YIN Phone number called:: [phone] Was contact made?: Yes If yes, spoke with:: DR. YIN Time called:: 08:50 04/29/16 07:45 Consult to Wound/ET Nurse [CONS] Routine Reason For Exam: wound eval Primary care physician: DARWIN RAMIREZ Hospitalization Reason for admission: Cellulitis, Chronic lymphedema Condition: Good Disposition: DC/TX HOME UNDER HOME HEALTH Time spent for discharge: 31 minutes - Discharge Diagnoses (1) Cellulitis Status: Acute Qualifiers: Site of cellulitis: extremity Site of cellulitis of extremity: S Site of cellulitis of trunk: S Laterality: left (2) Debility Status: Acute (3) History of gastric bypass Status: Acute (4) Lymphedema of both lower extremities Status: Chronic Core Measure Documentation - Palliative Care Palliative Care/ Comfort Measures: Not Applicable - Core Measures Any of the following diagnoses?: none Exam - Physical Exam Narrative exam: Not in cardiopulmonary distress. Vital signs as documented. Head exam is unremarkable. No scleral icterus . Neck is without jugular venous distension, thyromegaly, or carotid bruits. Lungs are clear to auscultation. Cardiac exam reveals regular rate and Rhythm. First and second heart sounds normal. No murmurs, rubs or gallops. Abdominal exam reveals normal bowel sounds, no masses, no organomegaly and no aortic enlargement. Extremities are significant for bilateral leg edema with some blisters on the feet. ENDOSCOPY SPECIALTY TECHNICIAN: Alert and oriented 3. 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 - Constitutional Vitals: Temp Pulse Resp BP Pulse Ox 97.9 F 82 18 108/60 97 04/30/16 08:00 04/30/16 08:00 04/30/16 08:00 04/30/16 08:00 04/30/16 08:00 Plan Follow up with: ZULY BURNETT MD [Referring] - 7 Days Prescriptions: Clindamycin [Clindamycin CAP] 450 mg PO Q8HR #45 capsule
--- NOTE | 2016-04-30 11:06 | Query- Nutrition ---
Dear Date:_04/30/16 Legal Aide/CDS:Ananth Trotter Phone#:_[phone] Exercise your independent professional judgment when responding to query. Questions asked do not imply a particular answer is desired or expected. We greatly appreciate your clarification on this issue. Clinical Documentation States: Dr. Unger H&P: History of present illness: 65-year-old -Spanish female well known to me from my office comes in for swelling of both the legs. Patient has chronic lymphedema. Patient was asked to follow up with vascular surgery a few months ago and did not follow up for last 1 year. Now comes in for redness of the left lower extremity of one month duration increase more so recently in the last 1 week and painful. Clinical Findings Show: Albumin: 2.0 Lymphocytes:600 Patient is non ambulatory, confined to a wheel chair Please select the most appropriate option 3 [] Mild Malnutrition [] Mild - Moderate Malnutrition [] Moderate - Severe Malnutrition [x] Severe Malnutrition Serum Albumin 2.8 to 3.4 g/dl or Pre-albumin 5 to 17 mg/dl1,2 Inadequate nutritional intake1,2,3,4 NPO > 5 days Weight loss: 5% in 1 month or 7.5% in 3 months or 10% in 6 months1, 3,4 BMI 16 to 18.4 or Weight <90% of ideal body weight1,2,3,4 Serum Albumin < 2.8 g/ dl1,2 Lymphocytes < 1500/ L2 Inadequate nutritional intake3, high stress e.g. major trauma, sepsis,pancreatitis, ram etc. Decubitus ulcers1,2, , skin breakdown2, easy hair pluckability2 Weight <80% standard for height2 Triceps skin fold <3 mm2 Mid-arm muscle circumference <15 cm2 Creatinine-height index <60% standard2 [ ] Cachexia [ ] Emaciated w/Malnutrition [ ] Other: [ x] Unable to determine [ ] Comment/Explanation: Present on Admission: [ ] Yes (Y) [ x] Clinically undeterminable (W) [ ] No (N) Please also document response in your Progress Notes and/or Discharge Summary and indicate if the condition was present on admission. MTDD
--- NOTE | 2016-04-30 14:35 | Progress Note ---
Assessment and Plan Assessment and plan: Cellulitis of bilateral lower extremity - Patient is on IV antibiotics - Pain control Bilateral lymph edema - Vascular surgery consult appreciated Left hip pain - Patient had surgery last October Obesity - Patient is constituted about weight loss Patient is not ambulatory - She is wheelchair Prophylaxis - Lovenox Disposition - Pending alf placement History Interval history: Patient was seen and evaluated this morning, patient complains right hip pain, which is chronic. Hospitalist Physical - Physical exam Narrative exam: Not in cardiopulmonary distress. Vital signs as documented. Head exam is unremarkable. No scleral icterus . Neck is without jugular venous distension, thyromegaly, or carotid bruits. Lungs are clear to auscultation. Cardiac exam reveals regular rate and Rhythm. First and second heart sounds normal. No murmurs, rubs or gallops. Abdominal exam reveals normal bowel sounds, no masses, no organomegaly and no aortic enlargement. Extremities are significant for bilateral leg edema with some blisters on the left foot. SUPERVISOR MOLD YARD: Alert and oriented 3. 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 - Constitutional Vitals: Temp Pulse Resp BP Pulse Ox 97.9 F 82 18 108/60 97 04/30/16 08:00 04/30/16 08:00 04/30/16 08:00 04/30/16 08:00 04/30/16 08:00 General appearance: Present: no acute distress, obese Results - Labs CBC & Chem 7: 04/29/16 07:23 04/29/16 07:23 Labs: Laboratory Last Values WBC 4.8 K/mm3 (4.5-11.0) 04/29/16 07:23 RBC 2.97 M/mm3 (3.65-5.03) L 04/29/16 07:23 Hgb 9.1 gm/dl (10.1-14.3) L 04/29/16 07:23 Hct 28.0 % (30.3-42.9) L 04/29/16 07:23 MCV 94 fl (79-97) 04/29/16 07:23 MCH 31 pg (28-32) 04/29/16 07:23 MCHC 33 % (30-34) 04/29/16 07:23 RDW 14.4 % (13.2-15.2) 04/29/16 07:23 Plt Count 83 K/mm3 (140-440) L 04/29/16 07:23 Add Manual Diff Complete 04/29/16 07:23 Total Counted 100 04/29/16 07:23 Seg Neuts % (Manual) 79.0 % (40.0-70.0) H 04/29/16 07:23 Band Neutrophils % 0 % 04/29/16 07:23 Lymphocytes % (Manual) 13.0 % (13.4-35.0) L 04/29/16 07:23 Reactive Lymphs % (Man) 0 % 04/29/16 07:23 Monocytes % (Manual) 8.0 % (0.0-7.3) H 04/29/16 07:23 Eosinophils % (Manual) 0 % (0.0-4.3) 04/29/16 07:23 Basophils % (Manual) 0 % (0.0-1.8) 04/29/16 07:23 Metamyelocytes % 0 % 04/29/16 07:23 Myelocytes % 0 % 04/29/16 07:23 Promyelocytes % 0 % 04/29/16 07:23 Blast Cells % 0 % 04/29/16 07:23 Nucleated RBC % Not Reportable 04/29/16 07:23 Seg Neutrophils # Man 3.8 K/mm3 (1.8-7.7) 04/29/16 07:23 Band Neutrophils # 0.0 K/mm3 04/29/16 07:23 Lymphocytes # (Manual) 0.6 K/mm3 (1.2-5.4) L 04/29/16 07:23 Abs React Lymphs (Man) 0.0 K/mm3 04/29/16 07:23 Monocytes # (Manual) 0.4 K/mm3 (0.0-0.8) 04/29/16 07:23 Eosinophils # (Manual) 0.0 K/mm3 (0.0-0.4) 04/29/16 07:23 Basophils # (Manual) 0.0 K/mm3 (0.0-0.1) 04/29/16 07:23 Metamyelocytes # 0.0 K/mm3 04/29/16 07:23 Myelocytes # 0.0 K/mm3 04/29/16 07:23 Promyelocytes # 0.0 K/mm3 04/29/16 07:23 Blast Cells # 0.0 K/mm3 04/29/16 07:23 WBC Morphology Not Reportable 04/29/16 07:23 Hypersegmented Neuts Not Reportable 04/29/16 07:23 Hyposegmented Neuts Not Reportable 04/29/16 07:23 Hypogranular Neuts Not Reportable 04/29/16 07:23 Smudge Cells Not Reportable 04/29/16 07:23 Toxic Granulation Not Reportable 04/29/16 07:23 Toxic Vacuolation Not Reportable 04/29/16 07:23 Dohle Bodies Not Reportable 04/29/16 07:23 Pelger-Huet Anomaly Not Reportable 04/29/16 07:23 Juanjo Rods Not Reportable 04/29/16 07:23 Platelet Estimate Consistent w auto 04/29/16 07:23 Clumped Platelets Not Reportable 04/29/16 07:23 Plt Clumps, EDTA Not Reportable 04/29/16 07:23 Large Platelets Not Reportable 04/29/16 07:23 Giant Platelets Not Reportable 04/29/16 07:23 Platelet Satelliting Not Reportable 04/29/16 07:23 Plt Morphology Comment Not Reportable 04/29/16 07:23 RBC Morphology Not Reportable 04/29/16 07:23 Dimorphic RBCs Not Reportable 04/29/16 07:23 Polychromasia Not Reportable 04/29/16 07:23 Hypochromasia Not Reportable 04/29/16 07:23 Poikilocytosis Not Reportable 04/29/16 07:23 Anisocytosis 2+ 04/29/16 07:23 Microcytosis 1+ 04/29/16 07:23 Macrocytosis Not Reportable 04/29/16 07:23 Spherocytes Not Reportable 04/29/16 07:23 Pappenheimer Bodies Not Reportable 04/29/16 07:23 Sickle Cells Not Reportable 04/29/16 07:23 Target Cells Not Reportable 04/29/16 07:23 Tear Drop Cells Not Reportable 04/29/16 07:23 Ovalocytes Not Reportable 04/29/16 07:23 Helmet Cells Not Reportable 04/29/16 07:23 Areval[place] Bodies Not Reportable 04/29/16 07:23 [place] Rings Not Reportable 04/29/16 07:23 [place] Cells Not Reportable 04/29/16 07:23 Bite Cells Not Reportable 04/29/16 07:23 Crenated Cell Not Reportable 04/29/16 07:23 Elliptocytes Not Reportable 04/29/16 07:23 Acanthocytes (Spur) Not Reportable 04/29/16 07:23 Rouleaux Not Reportable 04/29/16 07:23 Hemoglobin C Crystals Not Reportable 04/29/16 07:23 Schistocytes Not Reportable 04/29/16 07:23 Malaria parasites Not Reportable 04/29/16 07:23 Rosalio Bodies Not Reportable 04/29/16 07:23 Hem Pathologist Commnt No 04/29/16 07:23 Sodium 138 mmol/L (137-145) 04/29/16 07:23 Potassium 4.8 mmol/L (3.6-5.0) 04/29/16 07:23 Chloride 108.3 mmol/L (98-107) H 04/29/16 07:23 Carbon Dioxide 18 mmol/L (22-30) L 04/29/16 07:23 Anion Gap 17 mmol/L 04/29/16 07:23 BUN 20 mg/dL (7-17) H 04/29/16 07:23 Creatinine 0.9 mg/dL (0.7-1.2) 04/29/16 07:23 Estimated GFR > 60 ml/min 04/29/16 07:23 BUN/Creatinine Ratio 22.22 % 04/29/16 07:23 Glucose 71 mg/dL (65-100) 04/29/16 07:23 Lactic Acid 1.6 mmol/L (0.7-2.0) 04/28/16 17:37 Calcium 7.7 mg/dL (8.4-10.2) L 04/29/16 07:23 Total Bilirubin 1.2 mg/dL (0.1-1.2) 04/29/16 07:23 AST 63 units/L (5-40) H 04/29/16 07:23 ALT 37 units/L (7-56) 04/29/16 07:23 Alkaline Phosphatase 122 units/L (35-129) 04/29/16 07:23 Total Creatine Kinase 55 units/L (30-135) 04/28/16 17:37 Total Protein 5.6 g/dL (6.3-8.2) L 04/29/16 07:23 Albumin 2.0 g/dL (3.9-5) L 04/29/16 07:23 Albumin/Globulin Ratio 0.6 % 04/29/16 07:23
[2016-04-30] MEDS: LOVENOX SUB-Q SCH (21:37)
[2016-05-01] MEDS: AMBIEN PO PRN (00:46)
[2016-05-01] MEDS: PERCOCET 5/325 PO PRN ×3 (00:46→17:25)
[2016-05-01] MEDS: VANCOMYCIN/NS 1 GM/250 ML 1 GM/250 ML BAG IV SCH ×2 (01:00→12:00)
[2016-05-01] MEDS: CLEOCIN 900 MG/50 mL 900 MG/50 ML BAG IV SCH ×2 (06:09→15:41)
[2016-05-01] MEDS: PEPCID PO SCH (09:10)
[2016-05-01] MEDS: K-DUR PO SCH (09:10)
[2016-05-01] MEDS: LASIX IV SCH (09:11)
[2016-05-02] MEDS: PERCOCET 5/325 PO PRN ×4 (00:49→22:11)
[2016-05-02] MEDS: PEPCID PO SCH ×3 (00:49→22:10)
[2016-05-02] MEDS: CLEOCIN 900 MG/50 mL 900 MG/50 ML BAG IV SCH ×2 (00:51→07:04)
[2016-05-02] MEDS: VANCOMYCIN/NS 1 GM/250 ML 1 GM/250 ML BAG IV SCH ×3 (00:52→22:10)
[2016-05-02] MEDS: LOVENOX SUB-Q SCH ×2 (00:53→22:09)
[2016-05-02] MEDS: AMBIEN PO PRN (01:35)
--- NOTE | 2016-05-02 08:30 | Progress Note ---
Assessment and Plan Assessment and plan: Cellulitis of bilateral lower extremity - Patient is on IV antibiotics - Pain control Bilateral lymph edema - Vascular surgery consult appreciated Left hip pain - Patient had surgery last October Obesity - Patient is constituted about weight loss Patient is not ambulatory - She is wheelchair Prophylaxis - Lovenox Disposition - Pending group home placement - Patient Problems (1) Cellulitis Current Visit: Yes Status: Acute Qualifiers: Site of cellulitis: extremity Site of cellulitis of extremity: S Site of cellulitis of trunk: S Laterality: left (2) Debility Current Visit: Yes Status: Acute (3) History of gastric bypass Current Visit: Yes Status: Acute (4) Lymphedema of both lower extremities Current Visit: Yes Status: Chronic History Interval history: Patient was seen and evaluated this morning, patient complains right hip pain, which is chronic. Hospitalist Physical - Physical exam Narrative exam: Not in cardiopulmonary distress. Vital signs as documented. Head exam is unremarkable. No scleral icterus . Neck is without jugular venous distension, thyromegaly, or carotid bruits. Lungs are clear to auscultation. Cardiac exam reveals regular rate and Rhythm. First and second heart sounds normal. No murmurs, rubs or gallops. Abdominal exam reveals normal bowel sounds, no masses, no organomegaly and no aortic enlargement. Extremities are significant for bilateral leg edema with some blisters on the feet. 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 - Constitutional Vitals: Temp Pulse Resp BP Pulse Ox 98.3 F 76 20 108/62 98 05/01/16 15:56 05/01/16 15:56 05/02/16 07:02 05/01/16 15:56 05/01/16 08:43 General appearance: Present: no acute distress, obese Results - Labs CBC & Chem 7: 04/29/16 07:23 04/29/16 07:23 Labs: Laboratory Last Values WBC 4.8 K/mm3 (4.5-11.0) 04/29/16 07:23 RBC 2.97 M/mm3 (3.65-5.03) L 04/29/16 07:23 Hgb 9.1 gm/dl (10.1-14.3) L 04/29/16 07:23 Hct 28.0 % (30.3-42.9) L 04/29/16 07:23 MCV 94 fl (79-97) 04/29/16 07:23 MCH 31 pg (28-32) 04/29/16 07:23 MCHC 33 % (30-34) 04/29/16 07:23 RDW 14.4 % (13.2-15.2) 04/29/16 07:23 Plt Count 83 K/mm3 (140-440) L 04/29/16 07:23 Add Manual Diff Complete 04/29/16 07:23 Total Counted 100 04/29/16 07:23 Seg Neuts % (Manual) 79.0 % (40.0-70.0) H 04/29/16 07:23 Band Neutrophils % 0 % 04/29/16 07:23 Lymphocytes % (Manual) 13.0 % (13.4-35.0) L 04/29/16 07:23 Reactive Lymphs % (Man) 0 % 04/29/16 07:23 Monocytes % (Manual) 8.0 % (0.0-7.3) H 04/29/16 07:23 Eosinophils % (Manual) 0 % (0.0-4.3) 04/29/16 07:23 Basophils % (Manual) 0 % (0.0-1.8) 04/29/16 07:23 Metamyelocytes % 0 % 04/29/16 07:23 Myelocytes % 0 % 04/29/16 07:23 Promyelocytes % 0 % 04/29/16 07:23 Blast Cells % 0 % 04/29/16 07:23 Nucleated RBC % Not Reportable 04/29/16 07:23 Seg Neutrophils # Man 3.8 K/mm3 (1.8-7.7) 04/29/16 07:23 Band Neutrophils # 0.0 K/mm3 04/29/16 07:23 Lymphocytes # (Manual) 0.6 K/mm3 (1.2-5.4) L 04/29/16 07:23 Abs React Lymphs (Man) 0.0 K/mm3 04/29/16 07:23 Monocytes # (Manual) 0.4 K/mm3 (0.0-0.8) 04/29/16 07:23 Eosinophils # (Manual) 0.0 K/mm3 (0.0-0.4) 04/29/16 07:23 Basophils # (Manual) 0.0 K/mm3 (0.0-0.1) 04/29/16 07:23 Metamyelocytes # 0.0 K/mm3 04/29/16 07:23 Myelocytes # 0.0 K/mm3 04/29/16 07:23 Promyelocytes # 0.0 K/mm3 04/29/16 07:23 Blast Cells # 0.0 K/mm3 04/29/16 07:23 WBC Morphology Not Reportable 04/29/16 07:23 Hypersegmented Neuts Not Reportable 04/29/16 07:23 Hyposegmented Neuts Not Reportable 04/29/16 07:23 Hypogranular Neuts Not Reportable 04/29/16 07:23 Smudge Cells Not Reportable 04/29/16 07:23 Toxic Granulation Not Reportable 04/29/16 07:23 Toxic Vacuolation Not Reportable 04/29/16 07:23 Dohle Bodies Not Reportable 04/29/16 07:23 Pelger-Huet Anomaly Not Reportable 04/29/16 07:23 Juanjo Rods Not Reportable 04/29/16 07:23 Platelet Estimate Consistent w auto 04/29/16 07:23 Clumped Platelets Not Reportable 04/29/16 07:23 Plt Clumps, EDTA Not Reportable 04/29/16 07:23 Large Platelets Not Reportable 04/29/16 07:23 Giant Platelets Not Reportable 04/29/16 07:23 Platelet Satelliting Not Reportable 04/29/16 07:23 Plt Morphology Comment Not Reportable 04/29/16 07:23 RBC Morphology Not Reportable 04/29/16 07:23 Dimorphic RBCs Not Reportable 04/29/16 07:23 Polychromasia Not Reportable 04/29/16 07:23 Hypochromasia Not Reportable 04/29/16 07:23 Poikilocytosis Not Reportable 04/29/16 07:23 Anisocytosis 2+ 04/29/16 07:23 Microcytosis 1+ 04/29/16 07:23 Macrocytosis Not Reportable 04/29/16 07:23 Spherocytes Not Reportable 04/29/16 07:23 Pappenheimer Bodies Not Reportable 04/29/16 07:23 Sickle Cells Not Reportable 04/29/16 07:23 Target Cells Not Reportable 04/29/16 07:23 Tear Drop Cells Not Reportable 04/29/16 07:23 Ovalocytes Not Reportable 04/29/16 07:23 Helmet Cells Not Reportable 04/29/16 07:23 Arevalo-[place] Bodies Not Reportable 04/29/16 07:23 [place] Rings Not Reportable 04/29/16 07:23 [place] Cells Not Reportable 04/29/16 07:23 Bite Cells Not Reportable 04/29/16 07:23 Crenated Cell Not Reportable 04/29/16 07:23 Elliptocytes Not Reportable 04/29/16 07:23 Acanthocytes (Spur) Not Reportable 04/29/16 07:23 Rouleaux Not Reportable 04/29/16 07:23 Hemoglobin C Crystals Not Reportable 04/29/16 07:23 Schistocytes Not Reportable 04/29/16 07:23 Malaria parasites Not Reportable 04/29/16 07:23 Rosalio Bodies Not Reportable 04/29/16 07:23 Hem Pathologist Commnt No 04/29/16 07:23 Sodium 138 mmol/L (137-145) 04/29/16 07:23 Potassium 4.8 mmol/L (3.6-5.0) 04/29/16 07:23 Chloride 108.3 mmol/L (98-107) H 04/29/16 07:23 Carbon Dioxide 18 mmol/L (22-30) L 04/29/16 07:23 Anion Gap 17 mmol/L 04/29/16 07:23 BUN 20 mg/dL (7-17) H 04/29/16 07:23 Creatinine 0.9 mg/dL (0.7-1.2) 04/29/16 07:23 Estimated GFR > 60 ml/min 04/29/16 07:23 BUN/Creatinine Ratio 22.22 % 04/29/16 07:23 Glucose 71 mg/dL (65-100) 04/29/16 07:23 Lactic Acid 1.6 mmol/L (0.7-2.0) 04/28/16 17:37 Calcium 7.7 mg/dL (8.4-10.2) L 04/29/16 07:23 Total Bilirubin 1.2 mg/dL (0.1-1.2) 04/29/16 07:23 AST 63 units/L (5-40) H 04/29/16 07:23 ALT 37 units/L (7-56) 04/29/16 07:23 Alkaline Phosphatase 122 units/L (35-129) 04/29/16 07:23 Total Creatine Kinase 55 units/L (30-135) 04/28/16 17:37 Total Protein 5.6 g/dL (6.3-8.2) L 04/29/16 07:23 Albumin 2.0 g/dL (3.9-5) L 04/29/16 07:23 Albumin/Globulin Ratio 0.6 % 04/29/16 07:23
[2016-05-02] MEDS: LASIX IV SCH (10:11)
[2016-05-02] MEDS: K-DUR PO SCH (10:12)
--- NOTE | 2016-05-02 11:02 | XRay Report ---
LEFT FEMUR TWO VIEWS: 04/28/16 18:44:00 CLINICAL: Leg pain. COMPARISON: 08/03/12 FINDINGS: A previously identified total hip replacement has been removed since the last exam. There is an intramedullary vick spanning from the greater trochanter to the distal femoral metaphysis. Residual hyperdense cement is identified in the acetabulum. There is no femoral head and there is lysis at the femoral neck. Exuberant periosteal new bone formation about the medial and lateral aspects of the femur. Normal soft tissues. IMPRESSION: Suspect chronic osteomyelitis of the femur status post removal of a left total hip prosthesis.
[2016-05-02] MEDS: DILAUDID IV PRN (11:03)
[2016-05-02] MEDS: LASIX PO SCH (11:03)
--- NOTE | 2016-05-02 14:13 | Progress Note ---
Assessment and Plan Assessment and plan: Cellulitis of bilateral lower extremity - Patient was on IV antibiotics now switched to po - Pain control Bilateral lymph edema - Vascular surgery consult appreciated - On furosemide Left hip pain - Patient had surgery last October Obesity - Patient is constituted about weight loss Patient is not ambulatory - She is wheelchair Prophylaxis - Lovenox Disposition - Pending long-term placement - Patient Problems (1) Cellulitis Current Visit: Yes Status: Acute Qualifiers: Site of cellulitis: extremity Site of cellulitis of extremity: S Site of cellulitis of trunk: S Laterality: left (2) Debility Current Visit: Yes Status: Acute (3) History of gastric bypass Current Visit: Yes Status: Acute (4) Lymphedema of both lower extremities Current Visit: Yes Status: Chronic History Interval history: Patient was seen and evaluated this morning, patient complains Hip pain is getting better. Hospitalist Physical - Physical exam Narrative exam: Not in cardiopulmonary distress. Vital signs as documented. Head exam is unremarkable. No scleral icterus . Neck is without jugular venous distension, thyromegaly, or carotid bruits. Lungs are clear to auscultation. Cardiac exam reveals regular rate and Rhythm. First and second heart sounds normal. No murmurs, rubs or gallops. Abdominal exam reveals normal bowel sounds, no masses, no organomegaly and no aortic enlargement. Extremities are significant for bilateral leg edema with some blisters on the feet. 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 - Constitutional Vitals: Temp Pulse Resp BP Pulse Ox 98.3 F 76 20 108/62 98 05/01/16 15:56 05/01/16 15:56 05/02/16 07:02 05/01/16 15:56 05/01/16 08:43 General appearance: Present: no acute distress, obese Results - Labs CBC & Chem 7: 04/29/16 07:23 04/29/16 07:23 Labs: Laboratory Last Values WBC 4.8 K/mm3 (4.5-11.0) 04/29/16 07:23 RBC 2.97 M/mm3 (3.65-5.03) L 04/29/16 07:23 Hgb 9.1 gm/dl (10.1-14.3) L 04/29/16 07:23 Hct 28.0 % (30.3-42.9) L 04/29/16 07:23 MCV 94 fl (79-97) 04/29/16 07:23 MCH 31 pg (28-32) 04/29/16 07:23 MCHC 33 % (30-34) 04/29/16 07:23 RDW 14.4 % (13.2-15.2) 04/29/16 07:23 Plt Count 83 K/mm3 (140-440) L 04/29/16 07:23 Add Manual Diff Complete 04/29/16 07:23 Total Counted 100 04/29/16 07:23 Seg Neuts % (Manual) 79.0 % (40.0-70.0) H 04/29/16 07:23 Band Neutrophils % 0 % 04/29/16 07:23 Lymphocytes % (Manual) 13.0 % (13.4-35.0) L 04/29/16 07:23 Reactive Lymphs % (Man) 0 % 04/29/16 07:23 Monocytes % (Manual) 8.0 % (0.0-7.3) H 04/29/16 07:23 Eosinophils % (Manual) 0 % (0.0-4.3) 04/29/16 07:23 Basophils % (Manual) 0 % (0.0-1.8) 04/29/16 07:23 Metamyelocytes % 0 % 04/29/16 07:23 Myelocytes % 0 % 04/29/16 07:23 Promyelocytes % 0 % 04/29/16 07:23 Blast Cells % 0 % 04/29/16 07:23 Nucleated RBC % Not Reportable 04/29/16 07:23 Seg Neutrophils # Man 3.8 K/mm3 (1.8-7.7) 04/29/16 07:23 Band Neutrophils # 0.0 K/mm3 04/29/16 07:23 Lymphocytes # (Manual) 0.6 K/mm3 (1.2-5.4) L 04/29/16 07:23 Abs React Lymphs (Man) 0.0 K/mm3 04/29/16 07:23 Monocytes # (Manual) 0.4 K/mm3 (0.0-0.8) 04/29/16 07:23 Eosinophils # (Manual) 0.0 K/mm3 (0.0-0.4) 04/29/16 07:23 Basophils # (Manual) 0.0 K/mm3 (0.0-0.1) 04/29/16 07:23 Metamyelocytes # 0.0 K/mm3 04/29/16 07:23 Myelocytes # 0.0 K/mm3 04/29/16 07:23 Promyelocytes # 0.0 K/mm3 04/29/16 07:23 Blast Cells # 0.0 K/mm3 04/29/16 07:23 WBC Morphology Not Reportable 04/29/16 07:23 Hypersegmented Neuts Not Reportable 04/29/16 07:23 Hyposegmented Neuts Not Reportable 04/29/16 07:23 Hypogranular Neuts Not Reportable 04/29/16 07:23 Smudge Cells Not Reportable 04/29/16 07:23 Toxic Granulation Not Reportable 04/29/16 07:23 Toxic Vacuolation Not Reportable 04/29/16 07:23 Dohle Bodies Not Reportable 04/29/16 07:23 Pelger-Huet Anomaly Not Reportable 04/29/16 07:23 Juanjo Rods Not Reportable 04/29/16 07:23 Platelet Estimate Consistent w auto 04/29/16 07:23 Clumped Platelets Not Reportable 04/29/16 07:23 Plt Clumps, EDTA Not Reportable 04/29/16 07:23 Large Platelets Not Reportable 04/29/16 07:23 Giant Platelets Not Reportable 04/29/16 07:23 Platelet Satelliting Not Reportable 04/29/16 07:23 Plt Morphology Comment Not Reportable 04/29/16 07:23 RBC Morphology Not Reportable 04/29/16 07:23 Dimorphic RBCs Not Reportable 04/29/16 07:23 Polychromasia Not Reportable 04/29/16 07:23 Hypochromasia Not Reportable 04/29/16 07:23 Poikilocytosis Not Reportable 04/29/16 07:23 Anisocytosis 2+ 04/29/16 07:23 Microcytosis 1+ 04/29/16 07:23 Macrocytosis Not Reportable 04/29/16 07:23 Spherocytes Not Reportable 04/29/16 07:23 Pappenheimer Bodies Not Reportable 04/29/16 07:23 Sickle Cells Not Reportable 04/29/16 07:23 Target Cells Not Reportable 04/29/16 07:23 Tear Drop Cells Not Reportable 04/29/16 07:23 Ovalocytes Not Reportable 04/29/16 07:23 Helmet Cells Not Reportable 04/29/16 07:23 Arevalo-[place] Bodies Not Reportable 04/29/16 07:23 [place] Rings Not Reportable 04/29/16 07:23 [place] Cells Not Reportable 04/29/16 07:23 Bite Cells Not Reportable 04/29/16 07:23 Crenated Cell Not Reportable 04/29/16 07:23 Elliptocytes Not Reportable 04/29/16 07:23 Acanthocytes (Spur) Not Reportable 04/29/16 07:23 Rouleaux Not Reportable 04/29/16 07:23 Hemoglobin C Crystals Not Reportable 04/29/16 07:23 Schistocytes Not Reportable 04/29/16 07:23 Malaria parasites Not Reportable 04/29/16 07:23 Rosalio Bodies Not Reportable 04/29/16 07:23 Hem Pathologist Commnt No 04/29/16 07:23 Sodium 138 mmol/L (137-145) 04/29/16 07:23 Potassium 4.8 mmol/L (3.6-5.0) 04/29/16 07:23 Chloride 108.3 mmol/L (98-107) H 04/29/16 07:23 Carbon Dioxide 18 mmol/L (22-30) L 04/29/16 07:23 Anion Gap 17 mmol/L 04/29/16 07:23 BUN 20 mg/dL (7-17) H 04/29/16 07:23 Creatinine 0.9 mg/dL (0.7-1.2) 04/29/16 07:23 Estimated GFR > 60 ml/min 04/29/16 07:23 BUN/Creatinine Ratio 22.22 % 04/29/16 07:23 Glucose 71 mg/dL (65-100) 04/29/16 07:23 Lactic Acid 1.6 mmol/L (0.7-2.0) 04/28/16 17:37 Calcium 7.7 mg/dL (8.4-10.2) L 04/29/16 07:23 Total Bilirubin 1.2 mg/dL (0.1-1.2) 04/29/16 07:23 AST 63 units/L (5-40) H 04/29/16 07:23 ALT 37 units/L (7-56) 04/29/16 07:23 Alkaline Phosphatase 122 units/L (35-129) 04/29/16 07:23 Total Creatine Kinase 55 units/L (30-135) 04/28/16 17:37 Total Protein 5.6 g/dL (6.3-8.2) L 04/29/16 07:23 Albumin 2.0 g/dL (3.9-5) L 04/29/16 07:23 Albumin/Globulin Ratio 0.6 % 04/29/16 07:23
[2016-05-02] MEDS: CLEOCIN PO SCH ×2 (14:31→22:12)
[2016-05-03] MEDS: AMBIEN PO PRN ×2 (01:30→23:59)
[2016-05-03] MEDS: CLEOCIN PO SCH ×3 (10:28→20:20)
[2016-05-03] MEDS: PEPCID PO SCH ×2 (10:28→22:25)
[2016-05-03] MEDS: LASIX PO SCH (10:29)
[2016-05-03] MEDS: K-DUR PO SCH (10:29)
[2016-05-03] MEDS: PERCOCET 5/325 PO PRN ×2 (10:29→20:26)
--- NOTE | 2016-05-03 13:16 | Progress Note ---
Assessment and Plan Assessment and plan: Cellulitis of bilateral lower extremity - On clindamycin - Pain control Bilateral lymph edema - Vascular surgery consult appreciated - On furosemide Left hip pain - Patient had surgery last October Obesity - Patient is constituted about weight loss Patient is not ambulatory - She is wheelchair Prophylaxis - Lovenox Disposition - Pending fdc placement - Patient Problems (1) Cellulitis Current Visit: Yes Status: Acute Qualifiers: Site of cellulitis: extremity Site of cellulitis of extremity: S Site of cellulitis of trunk: S Laterality: left (2) Debility Current Visit: Yes Status: Acute (3) History of gastric bypass Current Visit: Yes Status: Acute (4) Lymphedema of both lower extremities Current Visit: Yes Status: Chronic History Interval history: Patient was seen and evaluated this morning, patient still complains left Hip pain. Hospitalist Physical - Physical exam Narrative exam: Not in cardiopulmonary distress. Vital signs as documented. Head exam is unremarkable. No scleral icterus . Neck is without jugular venous distension, thyromegaly, or carotid bruits. Lungs are clear to auscultation. Cardiac exam reveals regular rate and Rhythm. First and second heart sounds normal. No murmurs, rubs or gallops. Abdominal exam reveals normal bowel sounds, no masses, no organomegaly and no aortic enlargement. Extremities are significant for bilateral leg edema with some blisters on the feet. 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 - Constitutional Vitals: Temp Pulse Resp BP Pulse Ox 99.2 F 84 18 97/51 97 05/03/16 07:00 05/03/16 07:00 05/03/16 07:00 05/03/16 07:00 05/03/16 07:00 General appearance: Present: no acute distress, obese Results - Labs CBC & Chem 7: 04/29/16 07:23 04/29/16 07:23 Labs: Laboratory Last Values WBC 4.8 K/mm3 (4.5-11.0) 04/29/16 07:23 RBC 2.97 M/mm3 (3.65-5.03) L 04/29/16 07:23 Hgb 9.1 gm/dl (10.1-14.3) L 04/29/16 07:23 Hct 28.0 % (30.3-42.9) L 04/29/16 07:23 MCV 94 fl (79-97) 04/29/16 07:23 MCH 31 pg (28-32) 04/29/16 07:23 MCHC 33 % (30-34) 04/29/16 07:23 RDW 14.4 % (13.2-15.2) 04/29/16 07:23 Plt Count 83 K/mm3 (140-440) L 04/29/16 07:23 Add Manual Diff Complete 04/29/16 07:23 Total Counted 100 04/29/16 07:23 Seg Neuts % (Manual) 79.0 % (40.0-70.0) H 04/29/16 07:23 Band Neutrophils % 0 % 04/29/16 07:23 Lymphocytes % (Manual) 13.0 % (13.4-35.0) L 04/29/16 07:23 Reactive Lymphs % (Man) 0 % 04/29/16 07:23 Monocytes % (Manual) 8.0 % (0.0-7.3) H 04/29/16 07:23 Eosinophils % (Manual) 0 % (0.0-4.3) 04/29/16 07:23 Basophils % (Manual) 0 % (0.0-1.8) 04/29/16 07:23 Metamyelocytes % 0 % 04/29/16 07:23 Myelocytes % 0 % 04/29/16 07:23 Promyelocytes % 0 % 04/29/16 07:23 Blast Cells % 0 % 04/29/16 07:23 Nucleated RBC % Not Reportable 04/29/16 07:23 Seg Neutrophils # Man 3.8 K/mm3 (1.8-7.7) 04/29/16 07:23 Band Neutrophils # 0.0 K/mm3 04/29/16 07:23 Lymphocytes # (Manual) 0.6 K/mm3 (1.2-5.4) L 04/29/16 07:23 Abs React Lymphs (Man) 0.0 K/mm3 04/29/16 07:23 Monocytes # (Manual) 0.4 K/mm3 (0.0-0.8) 04/29/16 07:23 Eosinophils # (Manual) 0.0 K/mm3 (0.0-0.4) 04/29/16 07:23 Basophils # (Manual) 0.0 K/mm3 (0.0-0.1) 04/29/16 07:23 Metamyelocytes # 0.0 K/mm3 04/29/16 07:23 Myelocytes # 0.0 K/mm3 04/29/16 07:23 Promyelocytes # 0.0 K/mm3 04/29/16 07:23 Blast Cells # 0.0 K/mm3 04/29/16 07:23 WBC Morphology Not Reportable 04/29/16 07:23 Hypersegmented Neuts Not Reportable 04/29/16 07:23 Hyposegmented Neuts Not Reportable 04/29/16 07:23 Hypogranular Neuts Not Reportable 04/29/16 07:23 Smudge Cells Not Reportable 04/29/16 07:23 Toxic Granulation Not Reportable 04/29/16 07:23 Toxic Vacuolation Not Reportable 04/29/16 07:23 Dohle Bodies Not Reportable 04/29/16 07:23 Pelger-Huet Anomaly Not Reportable 04/29/16 07:23 Juanjo Rods Not Reportable 04/29/16 07:23 Platelet Estimate Consistent w auto 04/29/16 07:23 Clumped Platelets Not Reportable 04/29/16 07:23 Plt Clumps, EDTA Not Reportable 04/29/16 07:23 Large Platelets Not Reportable 04/29/16 07:23 Giant Platelets Not Reportable 04/29/16 07:23 Platelet Satelliting Not Reportable 04/29/16 07:23 Plt Morphology Comment Not Reportable 04/29/16 07:23 RBC Morphology Not Reportable 04/29/16 07:23 Dimorphic RBCs Not Reportable 04/29/16 07:23 Polychromasia Not Reportable 04/29/16 07:23 Hypochromasia Not Reportable 04/29/16 07:23 Poikilocytosis Not Reportable 04/29/16 07:23 Anisocytosis 2+ 04/29/16 07:23 Microcytosis 1+ 04/29/16 07:23 Macrocytosis Not Reportable 04/29/16 07:23 Spherocytes Not Reportable 04/29/16 07:23 Pappenheimer Bodies Not Reportable 04/29/16 07:23 Sickle Cells Not Reportable 04/29/16 07:23 Target Cells Not Reportable 04/29/16 07:23 Tear Drop Cells Not Reportable 04/29/16 07:23 Ovalocytes Not Reportable 04/29/16 07:23 Helmet Cells Not Reportable 04/29/16 07:23 Arevalo-[place] Bodies Not Reportable 04/29/16 07:23 [place] Rings Not Reportable 04/29/16 07:23 [place] Cells Not Reportable 04/29/16 07:23 Bite Cells Not Reportable 04/29/16 07:23 Crenated Cell Not Reportable 04/29/16 07:23 Elliptocytes Not Reportable 04/29/16 07:23 Acanthocytes (Spur) Not Reportable 04/29/16 07:23 Rouleaux Not Reportable 04/29/16 07:23 Hemoglobin C Crystals Not Reportable 04/29/16 07:23 Schistocytes Not Reportable 04/29/16 07:23 Malaria parasites Not Reportable 04/29/16 07:23 Rosalio Bodies Not Reportable 04/29/16 07:23 Hem Pathologist Commnt No 04/29/16 07:23 Sodium 138 mmol/L (137-145) 04/29/16 07:23 Potassium 4.8 mmol/L (3.6-5.0) 04/29/16 07:23 Chloride 108.3 mmol/L (98-107) H 04/29/16 07:23 Carbon Dioxide 18 mmol/L (22-30) L 04/29/16 07:23 Anion Gap 17 mmol/L 04/29/16 07:23 BUN 20 mg/dL (7-17) H 04/29/16 07:23 Creatinine 0.9 mg/dL (0.7-1.2) 04/29/16 07:23 Estimated GFR > 60 ml/min 04/29/16 07:23 BUN/Creatinine Ratio 22.22 % 04/29/16 07:23 Glucose 71 mg/dL (65-100) 04/29/16 07:23 Lactic Acid 1.6 mmol/L (0.7-2.0) 04/28/16 17:37 Calcium 7.7 mg/dL (8.4-10.2) L 04/29/16 07:23 Total Bilirubin 1.2 mg/dL (0.1-1.2) 04/29/16 07:23 AST 63 units/L (5-40) H 04/29/16 07:23 ALT 37 units/L (7-56) 04/29/16 07:23 Alkaline Phosphatase 122 units/L (35-129) 04/29/16 07:23 Total Creatine Kinase 55 units/L (30-135) 04/28/16 17:37 Total Protein 5.6 g/dL (6.3-8.2) L 04/29/16 07:23 Albumin 2.0 g/dL (3.9-5) L 04/29/16 07:23 Albumin/Globulin Ratio 0.6 % 04/29/16 07:23
[2016-05-03] MEDS: DILAUDID IV PRN (14:04)
[2016-05-03] MEDS: LOVENOX SUB-Q SCH (22:25)
[2016-05-03] MEDS ORDERED: NACL 0.9% 500 ML 500 ML IV ONE (23:47)
[2016-05-04] MEDS: PERCOCET 5/325 PO PRN ×2 (02:55→08:20)
[2016-05-04 06:32] LABS: Anion Gap 14 mmol/L; BUN/Creatinine Ratio 19.09; Blood Urea Nitrogen 21 mg/dL (7-17); Calcium 7.2 mg/dL (8.4-10.2); Carbon Dioxide 21 mmol/L (22-30); Chloride 107.3 mmol/L (98-107); Glucose 86 mg/dL (65-100); Potassium 4.9 mmol/L (3.6-5.0); Sodium 137 mmol/L (137-145)
[2016-05-04] MEDS: CLEOCIN PO SCH (08:19)
--- NOTE | 2016-05-04 08:37 | Discharge Summary ---
Providers - Providers Date of Admission: 04/28/16 18:44 Date of discharge: 05/04/16 Attending physician: JIMENA YUAN MD 04/28/16 21:26 Consult to Physician [CONS] Routine Consulting Provider: LU RODRIGUEZ Reason For Exam: Lymphedema Place consult to:: Notified:: DR. YIN Phone number called:: [phone] Was contact made?: Yes If yes, spoke with:: DR. YIN Time called:: 08:50 04/29/16 07:45 Consult to Wound/ET Nurse [CONS] Routine Reason For Exam: wound eval 04/30/16 14:29 Physical Therapy Evaluation and Treat [CONS] Urgent Comment: Reason For Exam: PT eval for sub-acute placement Primary care physician: DARWIN RAMIREZ Hospitalization Reason for admission: Cellulitis Condition: Good Disposition: DC/[place] SNF W [facility] CERT - Discharge Diagnoses (1) Cellulitis Status: Acute Qualifiers: Site of cellulitis: extremity Site of cellulitis of extremity: S Site of cellulitis of trunk: S Laterality: left (2) Debility Status: Acute (3) History of gastric bypass Status: Acute (4) Lymphedema of both lower extremities Status: Chronic Core Measure Documentation - Palliative Care Palliative Care/ Comfort Measures: Not Applicable - Core Measures Any of the following diagnoses?: none Exam - Constitutional Vitals: Temp Pulse Resp BP Pulse Ox 98.2 F 75 20 97/56 100 05/04/16 00:00 05/04/16 02:30 05/04/16 02:55 05/04/16 02:30 05/04/16 00:00 Plan Activity: advance as tolerated Weight Bearing Status: Weight Bear as Tolerated Diet: low fat, low cholesterol, low salt Follow up with: PRIMARY CARE, [Referring] - 7 Days Prescriptions: Clindamycin [Clindamycin CAP] 600 mg PO BID 3 Days Furosemide [Lasix TAB] 40 mg PO QDAY #30 tablet HYDROcodone/APAP 10-325 [[place] 10-325 mg TAB] 1 each PO Q4H PRN #20 tablet PRN Reason: Pain, Moderate (4-6) Potassium Chloride [K-Dur] 20 meq PO QDAY #30 tablet
[2016-05-04 09:14] VITALS: BP 89/53
[2016-05-04] MEDS: PEPCID PO SCH (09:29)
[2016-05-04] MEDS: K-DUR PO SCH (09:29)
[2016-05-04] MEDS: LASIX PO SCH (09:29)
== END 2016-05-04 13:15 | DRG 602 ==
LOC: ED 14:10 → 3A 18:44
PROVIDERS: ADMIT Internal Medicine; ATTEND Internal Medicine
DX: L03.116 Cellulitis of left lower limb (principal); E43 Unspecified severe protein-calorie malnutrition; I89.0 Lymphedema, not elsewhere classified; L03.115 Cellulitis of right lower limb; M19.90 Unspecified osteoarthritis, unspecified site; I10 Essential (primary) hypertension; E66.01 Morbid (severe) obesity due to excess calories; R53.81 Other malaise; G89.4 Chronic pain syndrome; Z88.0 Allergy status to penicillin; Z91.010 Allergy to peanuts; Z98.84 Bariatric surgery status; Z87.891 Personal history of nicotine dependence; Z68.39 Body mass index [BMI] 39.0-39.9, adult
CPT/HCPCS: 36415; 80048; 80053; 82140; 82550; 85007; 85025; 85027; 96365; 96375; G8978-GP; G8979-GP; J1170; J1650; J1885; J1940; J3010; J3370; J7040